=== PATIENT | male | born 1960 | race Caucasian/White ===

== ENCOUNTER 2023-02-24 14:55 | Emergency (ER) | payer OTHER, SELFPAY ==
--- NOTE | 2023-02-24 15:00 | ED.WOUNDLAC ---
HPI - Wound/Laceration General Chief Complaint: Skin/Abscess/Foreign Body Stated Complaint: Left hand lac Time Seen by Provider: 02/24/23 14:56 Source: patient Mode of arrival: ambulatory Limitations: no limitations History of Present Illness HPI narrative: Mr. Ronquillo is a 62-year-old male patient presenting to the clinic today with complaints of a laceration to his left hand. Reports that he was using a saw and cut in between his right thumb and index finger. Bleeding is controlled. Tetanus is unknown. Is able to flex and extend the index finger and thumb without difficulty. Related Data Home Medications Medication Instructions Recorded Confirmed lisinopril 40 mg tablet 40 mg PO DAILY 02/24/23 02/24/23 omeprazole 20 mg capsule,delayed 20 mg PO DAILY 02/24/23 02/24/23 release simvastatin 20 mg tablet 20 mg PO DAILY 02/24/23 02/24/23 Allergies Allergy/AdvReac Type Severity Reaction Status Date / Time NKDA Allergy Mild Uncoded 06/13/09 18:09 Review of Systems Review of Systems: Pertinent positives per HPI. Patient denies any fever, chills, rash, headache, visual changes, dizziness, cough, runny nose, sore throat, shortness of breath, chest pain, palpitations, nausea, vomiting, diarrhea, constipation, abdominal pain, or any urinary issues. PMFSH Comments At the time of my signature, I reviewed and agree with the nursing past medical, surgical, social, and family history. There is no relevant family history pertinent to the patient complaint. Exam Narrative: General: Well-developed, well nourished, in no apparent distress Head: Normocephalic, atraumatic. Cardio: Regular rate and rhythm, s1 and s2 normal, no murmur appreciated. Resp: Clear to auscultation bilaterally, no rhonchi, rales, wheezing or rubs. Integumentary: [place], warm, and dry, laceration measuring 6 cm in total but gaping part of the laceration measuring 3 cm x 1 cm to the dorsal webbing in between the thumb and index finger. Able to flex and extend left index finger and left thumb against resistance without difficulty or pain. Course Course Emergency Course: Portions of this record may have been created with voice recognition software. Level of Care: Express Care Visit Vital Signs Vital signs: Vital Signs Temperature 37.1 C 02/24/23 15:08 Pulse Rate 90 02/24/23 15:08 Respiratory Rate 18 02/24/23 15:08 Blood Pressure 111/83 02/24/23 15:08 Pulse Oximetry 100 02/24/23 15:08 Oxygen Delivery Room Air 02/24/23 15:08 Temperature 37.1 C 02/24/23 15:08 Pulse Rate 90 02/24/23 15:08 Respiratory Rate 18 02/24/23 15:08 Blood Pressure 111/83 02/24/23 15:08 Pulse Oximetry 100 02/24/23 15:08 Oxygen Delivery Room Air 02/24/23 15:08 Vital signs reviewed Procedures Laceration Laceration 1: Date: 02/24/23 Site: hand Side (If applicable): left Size (cm): 6 Description: linear, irregular and contaminated Depth: simple, single layer Local Anesthetic: lidocaine 2% Amount of anesthesia used (mL): 5 Pre-repair: wound explored, irrigated, irrigated extensively and minor debridement ====== Skin Level ====== Skin layer closed with: nylon Size (cm): 4-0 Number of sutures: 5 Technique: simple, interrupted ====== Subcutaneous Layer ====== ====== Muscle Layer ====== ====== Tendon Layer ====== Dressing: Verbal consent obtained for laceration repair. Risk and benefits explained and patient voiced understanding. Area was cleansed with antiseptic soap, irrigated with sterile saline, and a 25 gauge needle was then used to instill (5) ml of 2% lidocaine without epi into the wound edges. Area was prepped and draped using sterile technique. Very minor debridement completed using iris scissors, a 4-0 suture on a p needle was used to place (5) interrupted sutures bringing the wound edges together- well a
[2023-02-24 15:08] VITALS: BP 111/83; PULSE 90; RESP 18; TEMP 37.1; O2SAT 100
[2023-02-24] MEDS: TETANUS,DIPHTHERIA,AC PERTUSSIS ADULT (0.5 ML) BOOSTRIX IM (15:33)
== END 2023-02-24 15:45 | disposition home or self-care (01) ==
PROVIDERS: Emergency Provider Nurse Practitioner Family; PCP Hospitalist
DX: S61.412A Laceration without foreign body of left hand, initial encounter (principal); W27.0XXA Contact with workbench tool, initial encounter; Z23 Encounter for immunization
CPT/HCPCS: 12002; 90471; 90715; 99213; G0463

== ENCOUNTER 2023-03-10 10:53 | Emergency (ER) | payer OTHER, SELFPAY ==
[2023-03-10 10:58] VITALS: BP 114/72; PULSE 73; RESP 16; TEMP 36.3; O2SAT 99
--- NOTE | 2023-03-10 11:34 | ED.WOUNDLAC ---
HPI - Wound/Laceration General Chief Complaint: Wound/Laceration Stated Complaint: Suture Removal Source: patient and RN notes reviewed History of Present Illness HPI narrative: [age] year male presents to urgent care for suture removal. The patient had 5 sutures placed on 02/24/2023 here in the clinic after he was cut by a saw. Pt states he completed his antibiotic without issue. Pt states he was taking his hand out of his pocket the other day when a scab was pulled on but other than that, no other wound complications or concerns. Related Data Home Medications Medication Instructions Recorded Confirmed lisinopril 40 mg tablet 40 mg PO DAILY 02/24/23 03/10/23 omeprazole 20 mg capsule,delayed 20 mg PO DAILY 02/24/23 03/10/23 release simvastatin 20 mg tablet 20 mg PO DAILY 02/24/23 03/10/23 Allergies Allergy/AdvReac Type Severity Reaction Status Date / Time NKDA Allergy Mild Unknown Uncoded 03/10/23 11:05 Review of Systems Review of Systems: CONSTITUTIONAL: Denies fever, chills, or sweats. EYES: Denies visual changes, redness, or discharge. ENT: Denies otalgia and sore throat CARDIOVASCULAR: Denies chest pain, palpitations, or edema. RESPIRATORY: Denies cough or dyspnea. GASTROINTESTINAL: Denies abdominal pain, nausea, vomiting, or diarrhea. GENITOURINARY: Denies dysuria or hematuria. SKIN: Wound to left hand with 5 sutures placed MUSCULOSKELETAL: Denies back pain, joint pain, or myalgia. NEUROLOGIC: Denies headache, numbness, or weakness. Pertinent positives per HPI. PMFSH Comments At the time of my signature, I reviewed and agree with the nursing past medical, surgical, social, and family history. There is no relevant family history pertinent to the patient complaint. Exam Narrative: GENERAL: This is a well-nourished, well-developed patient, in no apparent distress. HEAD: normocephalic, atraumatic. EYES: Sclera clear/white. Vision is grossly intact. EARS: External ears normal, auditory canals clear and without drainage. Hearing grossly intact. NOSE: External nose normal with no obvious nasal discharge, nares without redness, no rhinorrhea. THROAT: Mucous membranes moist, posterior pharynx clear. NECK: Neck supple, non-tender without lymphadenopathy, masses or thyromegaly. CARDIOVASCULAR: Regular rate RESPIRATORY: No respiratory distress SKIN: wound noted with 5 sutures to left dorsal hand. no exudate or erythema. NEURO: awake, alert, and oriented to person, place and time. There were no obvious focal neurologic abnormalities. EXTREMITIES: No clubbing, cyanosis, or edema. No joint tenderness, effusion, or edema noted. Course Course Level of Care: Express Care Visit Vital Signs Vital signs: Vital Signs Temperature 97.4 F L 03/10/23 10:58 Pulse Rate 73 03/10/23 10:58 Respiratory Rate 16 03/10/23 10:58 Blood Pressure 114/72 03/10/23 10:58 Pulse Oximetry 99 03/10/23 10:58 Oxygen Delivery Room Air 03/10/23 10:58 Temperature 97.4 F L 03/10/23 10:58 Pulse Rate 73 03/10/23 10:58 Respiratory Rate 16 03/10/23 10:58 Blood Pressure 114/72 03/10/23 10:58 Pulse Oximetry 99 03/10/23 10:58 Oxygen Delivery Room Air 03/10/23 10:58 Reviewed MDM - Wound/Laceration MDM Narrative Medical decision making narrative: Pt's sutures were removed without issue. Wound is healing well with moderate scabbing noted. NO surrounding drainage or erythema noted. Differential Diagnosis Differential diagnosis: Likely other (suture removal, wound infection, cellulitis) Critical Care Time Critical Care Time Critical Care Time: No Discharge Plan Discharge Clinical Impression: Visit for suture removal Patient Disposition: Home, Self-Care Condition: Stable Instructions: Acute Wounds (DC) Prescriptions: No Action simvastatin 20 mg tablet 20 mg PO DAILY omeprazole 20 mg capsule,delayed release(DR/EC) 20 mg PO DAILY lisinopril 40 mg tabl
== END 2023-03-10 11:43 | disposition home or self-care (01) ==
PROVIDERS: Emergency Provider Nurse Practitioner Family; PCP Hospitalist
DX: Z48.02 Encounter for removal of sutures (principal)
CPT/HCPCS: 99211; G0463